=== PATIENT | male | born 1965 | race Caucasian/White ===

== ENCOUNTER 2017-02-16 05:43 | Day surgery (SDC) | payer MEDICAID ==
[~2017-02-16] VITALS: Ht 170.2 cm; Wt 90.7 kg
[2017-02-16] MEDS ORDERED: LIDOCAINE 2% 100 MG/5 ML UJET TP ONE (07:30)
[2017-02-16] MEDS ORDERED: TAMS0.4C96 PO (07:50)
== END 2017-02-16 09:10 | disposition home or self-care (01) ==
LOC: MDS 05:43 → MMU 05:57 → MDS 09:10
PROVIDERS: ATTEND Internal Medicine Gastroenterology
DX: K63.5 Polyp of colon (principal); K64.9 Unspecified hemorrhoids; K57.30 Diverticulosis of large intestine without perforation or abscess without bleeding; E66.3 Overweight; Z79.899 Other long term (current) drug therapy; Z80.0 Family history of malignant neoplasm of digestive organs

== ENCOUNTER 2019-05-02 12:07 | Emergency (ER) | payer MEDICAID ==
[~2019-05-02] VITALS: Ht 170.2 cm; Wt 87.5 kg
[~2019-05-02 12:07] MED LIST: TAMS0.4C96 PO
[2019-05-02 12:13] VITALS: BP 138/85
--- NOTE | 2019-05-02 12:45 | NUR ---
PT AMBULATED TO ER BED 05
--- NOTE | 2019-05-02 12:49 | NUR ---
54/M BIB SELF C/O INTERMITENT LEFT CHEST PAIN SINCE JANUARY. REFERRED BY DOCTOR FOR ABNORMAL EKG.A PATIENT STATES PAIN OF 2/10 AT THIS TIME. PATIENT POSITIONED FOR COMFORT; HOB ELEVATED; BEDRAILS UP X1; BED DOWN. ER MD MADE AWARE OF PT STATUS.
[2019-05-02 15:28] LABS: BASOPHILS % (AUTO) 0.4 % (0.0-2.0); EOSINOPHILS # (AUTO) 0.1 K/uL (0-0.4); EOSINOPHILS % (AUTO) 1.9 % (0.0-4.0); HEMATOCRIT 44.5 % (36-52); HEMOGLOBIN 14.6 g/dL (12.0-18.0); LYMPHOCYTES % (AUTO) 14.1 % (20.5-51.1); MEAN CORPUSCULAR HEMOGLOBIN 31 pg (27-31); MEAN CORPUSCULAR HGB CONC 33 g/dL (33-37); MEAN CORPUSCULAR VOLUME 95.1 fL (80-94); MONOCYTES # (AUTO) 0.4 K/uL (0.8-1.0); MONOCYTES % (AUTO) 5.3 % (1.7-9.3); NEUTROPHILS # (AUTO) 5.5 K/uL (1.8-7.7); NEUTROPHILS % (AUTO) 78.3 % (42.2-75.2); PLATELET COUNT (AUTO) 225 K/uL (140-450); RED BLOOD CELL COUNT(AUTO) 4.68 MIL/uL (4.20-6.10); RED CELL DISTRIBUTION WIDTH 13.7 % (11.6-13.7)
[2019-05-02 15:56] LABS: ANION GAP 11.9 (8-16); CARBON DIOXIDE 29.1 mmol/L (21-32); CREATININE 0.7 mg/dL (0.7-1.3)
[2019-05-02 16:05] LABS: ALBUMIN 3.1 g/dL (3.4-5.0); TOTAL BILIRUBIN 0.3 mg/dL (0.0-1.0)
--- NOTE | 2019-05-02 17:48 | NUR ---
Patient being reevaluated by DR CHAKRABORTY at bedside.
[2019-05-02 18:04] VITALS: BP 134/83
== END 2019-05-02 18:05 | disposition home or self-care (01) ==
LOC: MED 12:07
DX: R07.89 Other chest pain (principal); G89.29 Other chronic pain; F41.9 Anxiety disorder, unspecified
CPT/HCPCS: 36415; 71045; 80053; 83735; 83880; 84484; 85025; 85379; 86140; 93005; 99284